=== PATIENT | male | born 1955 | race Native Hawaiian/Other Pacific Islander ===

== ENCOUNTER 2021-09-05 15:06 | Emergency (ER) | payer OTHER ==
[~2021-09-05] VITALS: Ht 190.5 cm; Wt 117.9 kg
[2021-09-05 15:11] VITALS: TEMP 98.7
[2021-09-05 16:15] VITALS: BP 143/86
== END 2021-09-05 16:15 | disposition home or self-care (01) ==
LOC: ED 15:06
DX: M54.59 Other low back pain (principal); G89.29 Other chronic pain; I10 Essential (primary) hypertension
CPT/HCPCS: 96372; 99282; J1885

== ENCOUNTER 2021-09-24 03:33 | Emergency (ER) | payer OTHER ==
[~2021-09-24] VITALS: Ht 190.5 cm; Wt 117.9 kg
[2021-09-24 03:39] VITALS: BP 178/101; TEMP 99
== END 2021-09-24 04:24 | disposition home or self-care (01) ==
LOC: ED 03:33
DX: M54.59 Other low back pain (principal); G89.29 Other chronic pain; R55 Syncope and collapse; Z53.29 Procedure and treatment not carried out because of patient's decision for other reasons
CPT/HCPCS: 93005; 99282

== ENCOUNTER 2021-09-30 11:51 | Observation (INO) | payer OTHER ==
[2021-09-30] VITALS (9 sets, daily range): BP systolic 97–166; BP diastolic 59–93; TEMP 97.9–98.2; Ht 190.5 cm; Wt 118.0 kg
[~2021-09-30] VITALS: Ht 190.5 cm; Wt 118.0 kg
[2021-09-30 12:45] LABS: PLATELET COUNT 216 K/uL (142-355)
[2021-09-30 12:59] LABS: PARTIAL THROMBOPLASTIN TIME 24.1 SECONDS (24.5-33.6)
[2021-10-01] VITALS (7 sets, daily range): BP systolic 96–143; BP diastolic 52–84; TEMP 97.4–98.5
[2021-10-01 05:55] LABS: PLATELET COUNT 167 K/uL (142-355)
[2021-10-01 06:13] LABS: POTASSIUM 3.8 mmol/L (3.6-5.2)
[2021-10-02 04:06] VITALS: BP 109/66; TEMP 98.3
[2021-10-02 08:00] VITALS: BP 139/81; TEMP 98.4
[2021-10-02 08:48] LABS: PLATELET COUNT 162 K/uL (142-355)
[2021-10-02 09:00] LABS: POTASSIUM 4.5 mmol/L (3.6-5.2)
[2021-10-02 12:00] VITALS: BP 137/73; TEMP 98.3
[2021-10-02 16:00] VITALS: BP 150/78; TEMP 98.3
[2021-10-02 20:00] VITALS: BP 104/54; TEMP 98.4
[2021-10-02 23:48] VITALS: BP 141/81; TEMP 98.3
[2021-10-03 04:00] VITALS: BP 134/83; TEMP 97.9
[2021-10-03 07:44] LABS: PLATELET COUNT 144 K/uL (142-355)
[2021-10-03 08:00] VITALS: BP 158/81; TEMP 97.7
[2021-10-03 08:29] LABS: POTASSIUM 4.3 mmol/L (3.6-5.2)
[2021-10-03] MEDS ORDERED: LIPITOR20 MG PO (11:26)
[2021-10-03] MEDS ORDERED: GLIM4TAB PO (11:27)
[2021-10-03] MEDS ORDERED: ROBAXIN-750750 MG PO (11:28)
[2021-10-03] MEDS ORDERED: ELIQUIS5 MG PO (11:29)
[2021-10-03] MEDS ORDERED: LISI10TA11 PO (11:30)
[2021-10-03] MEDS ORDERED: JANUVIA100 MG PO (11:30)
[2021-10-03] MEDS ORDERED: OXYCONTIN15 MG PO (11:31)
[2021-10-03] MEDS ORDERED: LORA1TAB17 PO (11:32)
[2021-10-03] MEDS ORDERED: JARDIANCE10 MG PO (11:33)
== END 2021-10-03 14:00 | disposition home or self-care (01) ==
LOC: ED 11:51 → MED/SURG 15:00
PROVIDERS: Emergency Medicine Emergency Medical Services; ADMIT Internal Medicine Endocrinology, Diabetes & Metabolism; ATTEND Internal Medicine Endocrinology, Diabetes & Metabolism
DX: N17.8 Other acute kidney failure (principal); I95.9 Hypotension, unspecified; M62.81 Muscle weakness (generalized); R07.89 Other chest pain; R19.7 Diarrhea, unspecified; E11.9 Type 2 diabetes mellitus without complications; I10 Essential (primary) hypertension; G47.33 Obstructive sleep apnea (adult) (pediatric); Z86.73 Personal history of transient ischemic attack (TIA), and cerebral infarction without residual deficits; Z86.711 Personal history of pulmonary embolism; E78.49 Other hyperlipidemia; G89.4 Chronic pain syndrome
CPT/HCPCS: 36415; 80048; 80053; 82272; 82948; 84484; 85027; 85379; 85610; 85730; 87635; 93005; 96360; 96366; 96374; 96375; 99220; 99284; G0378; J2270; J2405; J2550; J3490; U0003